=== PATIENT | male | born 2000 | race African-American/Black ===

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

== ENCOUNTER → 2018-03-29 | Outpatient (REF) | payer OTHER | LOC: M SFHCLERA 15:27 | DX: J02.9 Acute pharyngitis, unspecified (principal) ==

== ENCOUNTER 2019-10-10 16:28 | Emergency (ER) | payer OTHER ==
[~2019-10-10] VITALS: Ht 182.9 cm; Wt 77.5 kg
[~2019-10-10 16:28] MED LIST: IBUP-1022 PO; OSEL75CA PO
[2019-10-10] MEDS ORDERED: KETOROLAC 30 MG/ML VIAL (J1885) IV ONE (17:00)
[2019-10-10] MEDS ORDERED: ALBUTEROL 90 MCG/ACT 8GM HFA INHALER INH ONE (17:00)
[2019-10-10 17:26] LABS: BASO % 0.3 % (0.0-1.0); EOS # 0.1 10^3/uL (0.0-0.5); EOS % 0.9 % (0.0-3.0); HEMATOCRIT 43.8 % (42.0-52.0); HEMOGLOBIN 14.6 g/dl (13.5-17.5); LYMPH # 2.3 10^3/uL (1.5-5.0); LYMPH % 35.3 % (24.0-44.0); MEAN CORPUSCULAR HEMOGLOBIN 31.7 pg (27.0-33.0); MEAN CORPUSCULAR HGB CONC 33.3 g/dl (32.0-36.5); MEAN CORPUSCULAR VOLUME 95.2 fl (80.0-96.0); MONO # 0.5 10^3/uL (0.0-0.8); MONO % 7.9 % (0.0-5.0); NEUTROPHILS # 3.7 10^3/uL (1.5-8.5); NEUTROPHILS % 55.4 % (36.0-66.0); PLATELET COUNT, AUTOMATED 213 10^3/uL (150-450); WHITE BLOOD COUNT 6.6 10^3/uL (4.0-10.0)
--- NOTE | 2019-10-10 17:34 | REPVR ---
PROCEDURE INFORMATION: Exam: US Abdomen Limited, Right Upper Quadrant Exam date and time: 10/10/2019 5:21 PM Age: 18 years old Clinical indication: Other: Chest pain, RT flank pain; Additional info: Ruq pain TECHNIQUE: Imaging protocol: Real-time ultrasound of the abdomen with image documentation. Examination was focused on the right upper quadrant. COMPARISON: No relevant prior studies available. FINDINGS: Liver: Unremarkable. Gallbladder: No gallstones. No gallbladder wall thickening or pericholecystic fluid. Negative sonographic Bui's sign, as per the performing web press roll tender. Common bile duct: No stones. No ductal dilatation. Pancreas: Unremarkable as visualized. Right kidney: No mass. No definite stones. No hydronephrosis. IMPRESSION: No acute sonographic findings. Electronically signed by: Pino Jarrett On 10/10/2019 17:33:19 PM
[2019-10-10 17:44] LABS: INR 1.08; PROTHROMBIN TIME 13.7 SECONDS (11.8-14.0)
[2019-10-10 17:45] LABS: PARTIAL THROMBOPLASTIN TIME 34.6 SECONDS (25.0-38.4)
--- NOTE | 2019-10-10 17:57 | REP ---
CHEST, TWO VIEWS: There is no evidence of acute infiltrate. No pleural effusion is seen. The heart is normal in size. The mediastinal silhouette is unremarkable. The visualized osseous structures are intact. IMPRESSION: No acute pulmonary disease. Electronically Signed by Dale Soto MD 10/10/2019 06:23 P
[2019-10-10 18:05] LABS: ALT/SGPT 20 U/L (12-78); BILIRUBIN,DIRECT < 0.1 MG/DL (0.0-0.2); BILIRUBIN,TOTAL 0.5 MG/DL (0.2-1.0); BLOOD UREA NITROGEN 10 MG/DL (7-18); CARBON DIOXIDE LEVEL 29 MEQ/L (21-32); CHLORIDE LEVEL 107 MEQ/L (98-107); CK-MB VALUE MASS < 1.0 NG/ML (<3.6); CPK CREATINE PHOSPHOKINASE 313 U/L (39-308); CREATININE FOR GFR 0.78 MG/DL (0.70-1.30); GLUCOSE, FASTING 79 MG/DL (70-100); LIPASE 42 U/L (73-393); MB/CK RELATIVE INDEX 0.32 (< OR =4); POTASSIUM SERUM 5.4 MEQ/L (3.5-5.1); SODIUM LEVEL 138 MEQ/L (136-145); TOTAL PROTEIN 7.8 GM/DL (6.4-8.2); TROPONIN I < 0.02 NG/ML (< 0.10)
[2019-10-10] MEDS ORDERED: NS 1,000 ML IV ONE (18:30)
[2019-10-10] MEDS ORDERED: NAPR-837 PO (19:21)
[2019-10-10 19:27] VITALS: BP 134/81
--- NOTE | 2019-10-11 18:40 | ECGEPIP ---
[facility] - ED Test Date: 2019-10-10 Pat Name: ELAINE ALCANTAR Department: Room: - Gender: Male Keg Filler: CT : 2000 Requested By: Libby Luo Order Number: [id number] Reading MD: Libby Luo Measurements Intervals [place] Rate: 56 P: 59 MT: 150 QRS: 61 QRSD: 97 T: 64 QT: 414 QTc: 402 Interpretive Statements SINUS BRADYCARDIA SIMILAR 02/25/16 Electronically Signed on 10-11-2019 18:39:53 EDT by Libby Luo
== END 2019-10-10 19:33 | disposition home or self-care (01) ==
LOC: M ED 16:28
DX: S29.011A Strain of muscle and tendon of front wall of thorax, initial encounter (principal); X58.XXXA Exposure to other specified factors, initial encounter; Y92.89 Other specified places as the place of occurrence of the external cause; R06.02 Shortness of breath; F33.9 Major depressive disorder, recurrent, unspecified
CPT/HCPCS: 71046; 76705; 80047; 80048; 80076; 82550; 82553; 83690; 85025; 85610; 85730; 93005; 94640; 96361; 96374; 99284; J1885

== ENCOUNTER 2020-04-10 15:44 | Emergency (ER) | payer OTHER ==
[~2020-04-10] VITALS: Ht 182.9 cm; Wt 79.5 kg
[~2020-04-10 15:44] MED LIST changes: +NAPR-837 PO
[2020-04-10] MEDS ORDERED: ACETAMINOPHEN 325 MG TAB PO ONE (16:15)
--- NOTE | 2020-04-10 16:47 | REPVR ---
PROCEDURE INFORMATION: Exam: XR Left Knee Exam date and time: 04/10/2020 4:05 PM Age: 19 years old Clinical indication: Pain; Knee; Left; Additional info: Pop when running, unable to ambulate TECHNIQUE: Imaging protocol: XR Left knee. Views: 4 or more views. COMPARISON: No relevant prior studies available. FINDINGS: Bones/joints: There is a 3.3 x 1.5 cm oval lesion of the distal diaphysis of the femur contiguous with the posterior cortex. This is well-defined and thought to be benign such as a nonossifying fibroma. There is no evidence of fracture. Other findings: All 3 compartments appear fairly well preserved. IMPRESSION: 1. Benign nonossifying fibroma distal femur. 2. If there are continued symptoms suggest MRI. Electronically signed by: Carlos A Chang On 04/10/2020 16:46:55 PM
[2020-04-10 16:57] VITALS: BP 135/84
== END 2020-04-10 17:10 | disposition home or self-care (01) ==
LOC: M ED 15:44
DX: D16.22 Benign neoplasm of long bones of left lower limb (principal); M25.562 Pain in left knee

== ENCOUNTER 2020-04-20 14:00 | Outpatient (RCR) | payer OTHER | END 2020-04-22 | LOC: M PT 14:00 | PROVIDERS: ATTEND Physician Assistant | DX: S83.92XA Sprain of unspecified site of left knee, initial encounter (principal); X58.XXXA Exposure to other specified factors, initial encounter; Y92.9 Unspecified place or not applicable ==

== ENCOUNTER 2020-05-14 15:15 | Outpatient (RCR) | payer OTHER | END 2020-05-23 | LOC: M PT 15:15 | PROVIDERS: ATTEND Physician Assistant | DX: S83.92XA Sprain of unspecified site of left knee, initial encounter (principal); X58.XXXA Exposure to other specified factors, initial encounter; Y92.89 Other specified places as the place of occurrence of the external cause ==

== ENCOUNTER → 2020-07-18 | Outpatient (CLI) | payer OTHER | LOC: M LABSMTC 11:10 | PROVIDERS: ATTEND Family Medicine | DX: Z01.812 Encounter for preprocedural laboratory examination (principal); Z20.828 Contact with and (suspected) exposure to other viral communicable diseases ==

== ENCOUNTER 2020-08-21 15:15 | Outpatient (RCR) | payer OTHER | END 2020-08-23 | LOC: M PT 15:15 | PROVIDERS: ATTEND Orthopaedic Surgery | DX: Z47.89 Encounter for other orthopedic aftercare (principal); M25.562 Pain in left knee ==

== ENCOUNTER 2020-09-22 10:56 | Emergency (ER) | payer OTHER ==
[~2020-09-22] VITALS: Ht 180.3 cm; Wt 77.3 kg
[2020-09-22 10:57] VITALS: BP 142/93
== END 2020-09-22 11:42 | disposition home or self-care (01) ==
LOC: M ED 10:56
DX: R31.9 Hematuria, unspecified (principal); F33.9 Major depressive disorder, recurrent, unspecified

== ENCOUNTER → 2020-10-23 | Outpatient (CLI) | payer OTHER ==
[2020-10-23 14:50] LABS: HEPATITIS C VIRUS ABY INDEX 0.2 INDEX (<0.8); HIV 1&2 SCREEN CENTAUR NEGATIVE (NEGATIVE)
== END ==
LOC: M LAB 12:23
PROVIDERS: ATTEND Student in an Organized Health Care Education/Training Program
DX: Z00.00 Encounter for general adult medical examination without abnormal findings (principal)

== ENCOUNTER → 2020-12-16 | Outpatient (CLI) | payer OTHER, MEDICAID ==
--- NOTE | 2020-12-16 10:00 | REP ---
INDICATION: PAIN LEFT KNEE. COMPARISON: None. TECHNIQUE: Vance and AP and lateral weightbearing views of the left knee. FINDINGS: Osseous structures, joint spaces, and surrounding soft tissues are essentially normal. Continued evidence for benign nonossifying fibroma along the posterior distal femur. No obvious abnormality appreciated. IMPRESSION: Normal age-appropriate left knee radiographs. 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 <Electronically signed by Christiano Lakhani > 12/16/20 [id number]
== END ==
LOC: M SOG 08:26
PROVIDERS: ATTEND Orthopaedic Surgery Adult Reconstructive Orthopaedic Surgery
DX: M25.562 Pain in left knee (principal)

== ENCOUNTER → 2020-12-27 | Outpatient (CLI) | payer OTHER ==
--- NOTE | 2020-12-28 11:13 | REP ---
INDICATION: INTERNAL DERANGEMENT OF LT KNEE. COMPARISON: MRI 04/22/2020. TECHNIQUE: Multiple sequences obtained in the axial, coronal and sagittal planes. FINDINGS: Menisci: Intact, no tear. Cruciate ligaments: Intact. Collateral ligaments: Intact. Extensor mechanism/patellar retinacula: Intact. Cartilage: Smooth, no osteochondral defect. Bone marrow: In the distal femur lateral aspect posteriorly there is a benign well-defined cortical bone lesion, unchanged. Joint fluid: No effusion. Popliteal region: No cyst. IMPRESSION: Stable benign cortical bone lesion distal femur posterolaterally. Otherwise negative MRI left knee. <Electronically signed by Dale Soto > 12/28/20 [id number]
== END ==
LOC: M RAD 09:35
PROVIDERS: ATTEND Orthopaedic Surgery Adult Reconstructive Orthopaedic Surgery
DX: M23.92 Unspecified internal derangement of left knee (principal)

== ENCOUNTER → 2021-01-20 | Outpatient (RCR) | payer OTHER | LOC: M PT 12-23 08:10 | PROVIDERS: ATTEND Orthopaedic Surgery | DX: M25.562 Pain in left knee (principal) ==

== ENCOUNTER → 2021-02-16 | Outpatient (REF) | payer OTHER | LOC: M SFHCPLAZ 13:26 | PROVIDERS: ATTEND Family Medicine | DX: Z53.29 Procedure and treatment not carried out because of patient's decision for other reasons (principal) ==

== ENCOUNTER → 2021-04-12 | Outpatient (REF) | LOC: M EMP 09:37 | PROVIDERS: ATTEND Family Medicine | DX: Z11.52 Encounter for screening for COVID-19 (principal) ==

== ENCOUNTER → 2021-04-14 | Outpatient (REF) | payer OTHER ==
[~2021-04-14] MED LIST changes: +DICY10CA13 PO; +NAPR220C14 PO; +ZOLO100T
== END ==
LOC: M LAB REF 16:37
PROVIDERS: ATTEND Physician Assistant
DX: R50.9 Fever, unspecified (principal); R52 Pain, unspecified

== ENCOUNTER 2021-04-15 08:25 | Emergency (ER) | payer OTHER ==
[~2021-04-15] VITALS: Ht 180.3 cm; Wt 75.0 kg
[~2021-04-15 08:25] MED LIST changes: -DICY10CA13 PO; -NAPR220C14 PO; -ZOLO100T
[2021-04-15] MEDS ORDERED: ZOLO100T (08:37)
[2021-04-15] MEDS ORDERED: NAPR220C14 PO (08:37)
[2021-04-15] MEDS ORDERED: DICYCLOMINE 10 MG CAP PO ONE (11:20)
[2021-04-15] MEDS ORDERED: ONDANSETRON 4MG/2ML VIAL IV ONE (11:20)
[2021-04-15] MEDS ORDERED: KETOROLAC 30 MG/ML 1ML VIAL IV ONE (11:20)
[2021-04-15] MEDS ORDERED: NS 1,000 ML IV ONE (11:20)
--- NOTE | 2021-04-15 11:36 | REP ---
INDICATION: chest pain. COMPARISON: Comparison chest x-ray October 10, 2019. TECHNIQUE: Two views.. FINDINGS: The lungs are well inflated and free of infiltrate. The pleural angles are sharp. The heart size is normal. Pulmonary vasculature is not increased. No significant bony abnormality is seen. There is a granulomatous calcification again noted in the right base. IMPRESSION: No active disease. <Electronically signed by Linus Stearns > 04/15/21 [id number]
[2021-04-15 11:54] LABS: BASO % 0.8 % (0.0-1.0); EOS # 0.3 10^3/uL (0.0-0.5); EOS % 5.7 % (0.0-3.0); HEMATOCRIT 44.5 % (42.0-52.0); LYMPH # 1.7 10^3/uL (1.5-5.0); LYMPH % 34.2 % (24.0-44.0); MEAN CORPUSCULAR HEMOGLOBIN 31.9 pg (27.0-33.0); MEAN CORPUSCULAR HGB CONC 33.7 g/dl (32.0-36.5); MEAN CORPUSCULAR VOLUME 94.7 fl (80.0-96.0); MONO # 0.4 10^3/uL (0.0-0.8); MONO % 7.6 % (2.0-8.0); NEUTROPHILS # 2.5 10^3/uL (1.5-8.5); NEUTROPHILS % 51.5 % (36.0-66.0); PLATELET COUNT, AUTOMATED 196 10^3/uL (150-450); WHITE BLOOD COUNT 4.9 10^3/uL (4.0-10.0)
[2021-04-15 12:30] LABS: ALBUMIN 3.7 GM/DL (3.2-5.2); ALT/SGPT 17 U/L (12-78); BILIRUBIN,DIRECT 0.2 MG/DL (0.0-0.2); BILIRUBIN,TOTAL 0.6 MG/DL (0.2-1.0); CPK CREATINE PHOSPHOKINASE 176 U/L (39-308); LIPASE 38 U/L (73-393); MB/CK RELATIVE INDEX 0.57 (< OR =4); TROPONIN I < 0.02 NG/ML (< 0.10)
[2021-04-15] MEDS ORDERED: DICY10CA13 PO (12:56)
[2021-04-15 13:04] VITALS: BP 98/53
--- NOTE | 2021-04-16 00:14 | ECGEPIP ---
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
== END 2021-04-15 13:06 | disposition home or self-care (01) ==
LOC: M ED 08:25
DX: R19.7 Diarrhea, unspecified (principal); R52 Pain, unspecified; Z79.899 Other long term (current) drug therapy; F17.210 Nicotine dependence, cigarettes, uncomplicated
CPT/HCPCS: 71046; 80047; 80076; 82550; 82553; 83690; 85025; 85379; 87505; 93005; 96361; 96374; 96375; 99284; J1885; J2405

== ENCOUNTER 2021-10-24 17:46 | Emergency (ER) | payer MEDICAID, OTHER ==
[~2021-10-24] VITALS: Ht 182.9 cm; Wt 75.0 kg
[~2021-10-24 17:46] MED LIST changes: +DICY10CA13 PO; +NAPR220C14 PO; +ZOLO100T
[2021-10-24 19:14] LABS: BASO % 0.5 % (0.0-1.0); EOS # 0.3 10^3/uL (0.0-0.5); EOS % 5.4 % (0.0-3.0); HEMATOCRIT 46.9 % (42.0-52.0); HEMOGLOBIN 15.7 g/dl (13.5-17.5); LYMPH # 1.9 10^3/uL (1.5-5.0); LYMPH % 30.6 % (24.0-44.0); MEAN CORPUSCULAR HGB CONC 33.5 g/dl (32.0-36.5); MEAN CORPUSCULAR VOLUME 95.5 fl (80.0-96.0); MONO # 0.5 10^3/uL (0.0-0.8); MONO % 7.4 % (2.0-8.0); NEUTROPHILS # 3.4 10^3/uL (1.5-8.5); NEUTROPHILS % 55.9 % (36.0-66.0); PLATELET COUNT, AUTOMATED 182 10^3/uL (150-450); RED BLOOD COUNT 4.91 10^6/uL (4.30-6.10); WHITE BLOOD COUNT 6.1 10^3/uL (4.0-10.0)
[2021-10-24 19:42] LABS: BLOOD UREA NITROGEN 13 MG/DL (7-18); CALCIUM LEVEL 8.7 MG/DL (8.5-10.1); CARBON DIOXIDE LEVEL 29 MEQ/L (21-32); CHLORIDE LEVEL 110 MEQ/L (98-107); GLOMERULAR FILTRATION RATE > 60.0 (>60); GLUCOSE, FASTING 87 MG/DL (70-100); POTASSIUM SERUM 4.2 MEQ/L (3.5-5.1); SODIUM LEVEL 140 MEQ/L (136-145)
[2021-10-24 19:49] LABS: MONO REFLEX EBV COMP NEGATIVE (NEGATIVE)
[2021-10-24] MEDS ORDERED: AUGMENTIN 875 MG TAB PO ONE (20:15)
[2021-10-24] MEDS ORDERED: AMOX875T2 PO (20:15)
[2021-10-24 20:20] LABS: ERYTHROCYTE SEDIMENTATION RATE 1 mm/hr (0-15)
[2021-10-24 20:41] VITALS: BP 130/85
[2021-10-26 13:08] LABS: EBV AB TO NUCLEAR ANTIGEN >600.0 U/mL (0.0-17.9); EBV VIRAL CAPSID AG IgG >600.0 U/mL (0.0-17.9); EBV VIRAL CAPSID AG IgM <36.0 U/mL (0.0-35.9)
== END 2021-10-24 20:47 | disposition home or self-care (01) ==
LOC: M ED 17:46
DX: R52 Pain, unspecified (principal); K08.89 Other specified disorders of teeth and supporting structures; R51.9 Headache, unspecified; J02.9 Acute pharyngitis, unspecified

== ENCOUNTER → 2021-12-16 | Outpatient (CLI) | payer OTHER ==
[~2021-12-16] MED LIST changes: +AMOX875T2 PO
== END ==
LOC: M RAD 15:25
PROVIDERS: ATTEND Student in an Organized Health Care Education/Training Program
DX: M79.641 Pain in right hand (principal)

== ENCOUNTER → 2023-08-29 | Outpatient (REF) ==
[~2023-08-29] MED LIST changes: +DICY-61 PO; -DICY10CA13 PO
== END ==
LOC: M EMP 10:07
PROVIDERS: ATTEND Family Medicine
DX: Z53.9 Procedure and treatment not carried out, unspecified reason (principal)

== ENCOUNTER → 2023-08-29 | Outpatient (REF) | LOC: M EMP 10:09 | PROVIDERS: ATTEND Family Medicine | DX: Z20.828 Contact with and (suspected) exposure to other viral communicable diseases (principal) ==

== ENCOUNTER → 2025-07-21 | Outpatient (REF) ==
[~2025-07-21] MED LIST changes: -IBUP-1022 PO; +IBUP600T42 PO
== END ==
LOC: M EMP 08:39
PROVIDERS: ATTEND Family Medicine
DX: Z01.89 Encounter for other specified special examinations (principal)